=== PATIENT | male | born 1990 | race Asian ===

== ENCOUNTER 2017-11-06 08:36 | Emergency (ER) | payer OTHER ==
--- NOTE | 2017-11-06 09:15 | ED Physician Documentation ---
PD HPI HEADACHE - Stated complaint Stated Complaint: CAGLE - Chief complaint Chief Complaint: General - History obtained from History obtained from: Patient - History of Present Illness Timing - onset: How many days ago (2) Timing - onset during: Rest Timing - duration: Days (2) Timing - details: Gradual onset, Still present, Waxing and waning Worst headache ever?: No: Worst headache ever? Location: Front, Right Quality: Aching, Tightness. No: Thunderclap, Throbbing Associated symptoms: Nausea, Eye pain (light sensitive). No: Fever, Stiff neck , Vomiting, Weakness, Numbness, Vision changes Improved by: Quiet. No: Meds (tried ibuprofen) Worsened by: Noise Contributing factors: No: Anticoagulated, Possible carbon monoxide, Recent illness, Trauma Similar symptoms before: Has not had sx before Recently seen: Not recently seen Review of Systems Constitutional: denies: Fever, Chills, Myalgias Nose: reports: Rhinorrhea / runny nose, Sinus pressure / pain Throat: denies: Sore throat, Swollen tonsils Cardiac: denies: Chest pain / pressure, Palpitations, Pedal edema, Calf pain Respiratory: denies: Dyspnea, Cough GI: denies: Abdominal Pain, Nausea, Vomiting, Diarrhea Skin: denies: Rash, Lesions Musculoskeletal: denies: Neck pain, Back pain, Extremity swelling Neurologic: reports: Generalized weakness. denies: Focal weakness, Numbness, Near syncope, Syncope Psychiatric: denies: Anxiety, Insomnia Immunocompromised: denies: Immunocompromised PD PAST MEDICAL HISTORY - Past Medical History Past Medical History: No - Past Surgical History Past Surgical History: No - Present Medications Home Medications: Ambulatory Orders Medication Instructions Recorded Confirmed Cetirizine [ZyrTEC] 10 mg PO DAILY #20 tablet 11/06/17 Dexamethasone [Decadron] 4 mg PO DAILY #5 tablet 11/06/17 Ondansetron Odt [Zofran] 4 mg TL Q6H PRN #15 tablet 11/06/17 Tramadol HCl 50 mg PO Q6H PRN #15 tablet 11/06/17 - Allergies Allergies/Adverse Reactions: Allergies Allergy/AdvReac Type Severity Reaction Status Date / Time No Known Drug Allergies Allergy Verified 11/06/17 08:57 - Social History Does the pt smoke?: No Smoking Status: Never smoker Does the pt drink ETOH?: No Does the pt have substance abuse?: No - Immunizations Immunizations are current?: Yes PD ED PE NORMAL - Vitals Vital signs reviewed: Yes - General General: Alert and oriented X 3, No acute distress, Well developed/nourished - HEENT HEENT: PERRL (with light sensitivity. ), Ears normal, Moist mucous membranes, Pharynx benign, Other (fundi are normal. Mild tenderness to percussion over sinus areas. 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, No motor deficit, No sensory deficit, Normal speech Eye Opening: Spontaneous Motor: Obeys Commands Verbal: Oriented GCS Score: 15 Results - Vitals Vitals: Vital Signs - 24 hr 11/06/17 11/06/17 08:53 11:45 Temperature 36.8 C 36.4 C L Heart Rate 60 70 Respiratory 16 18 Rate Blood Pressure 135/92 H 137/89 H O2 Saturation 98 100 Oxygen O2 Source Room air - Labs Labs: Laboratory Tests 11/06/17 11/06/17 11/06/17 09:51 09:51 09:51 WBC 11.6 H RBC 4.61 L Hgb 14.2 Hct 42.8 MCV 92.7 MCH 30.8 MCHC 33.3 RDW 12.0 Plt Count 240 MPV 7.6 Neut # (Auto) 8.2 H Lymph # (Auto) 2.4 [place] # (Auto) 0.8 Eos # (Auto) 0.2 Baso # (Auto) 0.0 Absolute Nucleated RBC 0.00 Nucleated RBC % 0.0 ESR 6 Sodium 136 Potassium 3.5 Chloride 102 Carbon Dioxide 26 Anion Gap 8.0 BUN 12 Creatinine 0.9 Estimated GFR (MDRD) 101 Glucose 106 H Calcium 8.9 Total Bilirubin 0.9 AST 20 ALT 17 Alkaline Phosphatase 58 Total Protein 7.8 Albumin 4.2 Globulin 3.6 Albumin/Globulin Ratio 1.2 Lipase 38 PD MEDICAL DECISION MAKING - ED course Complexity details: considered differential (sounds migraine without history of them in the past. Could also have element of sinus headache, with some nasal congestion. ), d/w patient - Sepsis Event Vital Signs: Vital Signs - 24 hr 11/06/17 11/06/17 08:53 11:45 Temperature 36.8 C 36.4 C L Heart Rate 60 70 Respiratory 16 18 Rate Blood Pressure 135/92 H 137/89 H O2 Saturation 98 100 Oxygen O2 Source Room air Departure - Departure Disposition: 01 Home, Self Care Clinical Impression: Right-sided headache Migraine headache Qualifiers: Migraine type: without aura Status migrainosus presence: with status migrainosus Intractability: not intractable Qualified Code(s): G43.001 - Migraine without aura, not intractable, with status migrainosus Condition: Stable Record reviewed to determine appropriate education?: Yes Instructions: ED Cephalgia Unspecified, ED Headache Migraine Follow-Up: YARELY Nichols [Provider Group] Prescriptions: Cetirizine [ZyrTEC] 10 mg PO DAILY #20 tablet Dexamethasone [Decadron] 4 mg PO DAILY #5 tablet Ondansetron Odt [Zofran] 4 mg TL Q6H PRN #15 tablet PRN Reason: Nausea / Vomiting Tramadol HCl 50 mg PO Q6H PRN #15 tablet PRN Reason: Pain Comments: Her headache sounds most likely to be a migraine headache. These can be infrequent or could develop into a more common pattern. See how you do in the near future if you have recurrent ones. It also could be sinus or allergy headache. For both of these, use Decadron anti-inflammatories daily for the next 5 days. Also take cetirizine antihistamine for allergies daily for the next week or 2. Drink lots of fluids. Use ondansetron if needed for nausea. Add Tylenol or tramadol if needed for continued headache. Recheck if your headache is not completely resolved and staying away over the next day or 2 or if you have recurrent headaches in the near future. Forms: Activity restrictions Discharge Date/Time: 11/06/17 11:45
[2017-11-06] MEDS ORDERED: KETOROLAC 60 MG/2 ML VIAL IVP STA (09:43)
[2017-11-06] MEDS ORDERED: DEXAMETHASONE 10 MG/ML VIAL IVP STA (09:43)
[2017-11-06] MEDS ORDERED: diphenhydrAMINE INJ 50 MG/ML VIAL IVP STA (09:43)
[2017-11-06] MEDS ORDERED: METOCLOPRAMIDE 10 MG/2 ML VIAL IVP STA ×2 (09:43→10:54)
[2017-11-06] MEDS ORDERED: SODIUM CHLORIDE 0.9% 1,000 ML IV ONE (09:43)
[2017-11-06 09:57] LABS: BASOPHILS % (AUTO) 0.4 %; EOSINOPHILS # (AUTO) 0.2 10^3/uL (0.0-0.7); EOSINOPHILS % (AUTO) 2.1 %; HGB - HEMOGLOBIN 14.2 g/dL (14.0-18.0); LYMPHOCYTES # (AUTO) 2.4 10^3/uL (1.5-3.5); LYMPHOCYTES % (AUTO) 20.2 %; MEAN CORPUSCULAR HEMOGLOBIN 30.8 pg (27.0-31.0); MEAN CORPUSCULAR HGB CONC 33.3 g/dL (32.0-36.0); MEAN CORPUSCULAR VOLUME 92.7 fL (80.0-94.0); MEAN PLATELET VOLUME 7.6 fL (7.4-11.4); MONOCYTES # (AUTO) 0.8 10^3/uL (0.0-1.0); MONOCYTES % (AUTO) 6.5 %; NEUTROPHILS # (AUTO) 8.2 10^3/uL (1.5-6.6); NEUTROPHILS % (AUTO) 70.8 %; PLT - PLATELET COUNT 240 10^3/uL (130-450); RED BLOOD COUNT 4.61 10^6/uL (4.70-6.10); WHITE BLOOD COUNT 11.6 x10^3/uL (4.8-10.8)
[2017-11-06 10:08] LABS: ALBUMIN 4.2 g/dL (3.2-5.5); ALBUMIN/GLOBULIN RATIO 1.2 (1.0-2.2); BILIRUBIN,TOTAL 0.9 mg/dL (0.2-1.0); CALCIUM 8.9 mg/dL (8.5-10.3); CREATININE 0.9 mg/dL (0.6-1.2); TOTAL PROTEIN 7.8 g/dL (6.7-8.2)
[2017-11-06] MEDS ORDERED: ACETAMINOPHEN 325 MG TABLET PO STA (10:55)
[2017-11-06 11:46] VITALS: BP 137/89
== END 2017-11-06 11:45 | disposition home or self-care (01) ==
LOC: ED 08:36
DX: G43.001 Migraine without aura, not intractable, with status migrainosus (principal)
CPT/HCPCS: 36415; 80053; 83690; 85025; 85651; 96361; 96374; 96375; 96376; 99282; 99284; A9270; J1200; J2765